=== PATIENT | male | born 1980 | race Caucasian/White ===

== ENCOUNTER 2023-08-07 23:39 | Emergency (ER) | payer MEDICARE, MEDICAID ==
[~2023-08-07] VITALS: Ht 182.9 cm; Wt 79.5 kg
[2023-08-07 23:44] VITALS: TEMP 98.3
[2023-08-07] MEDS ORDERED: clonazePAM 1 MG TAB PO ONE (23:45)
[2023-08-07] MEDS ORDERED: cloNIDine 0.1 MG TAB PO ONE (23:45)
[2023-08-08] MEDS ORDERED: KLONOPIN 1MG1 MG PO (00:13)
[2023-08-08] MEDS ORDERED: CATAPRES 0.1MG0.1 MG PO (00:13)
[2023-08-08 00:15] VITALS: BP 137/64; PULSE 60
== END 2023-08-10 17:51 | disposition home or self-care (01) ==
LOC: COL.ER 23:39
DX: F41.9 Anxiety disorder, unspecified (principal); I10 Essential (primary) hypertension; Z76.0 Encounter for issue of repeat prescription; F17.210 Nicotine dependence, cigarettes, uncomplicated; Z79.899 Other long term (current) drug therapy

== ENCOUNTER → 2024-01-11 | Outpatient (CLI) | payer MEDICARE, MEDICAID ==
[~2024-01-11] MED LIST: CATAPRES 0.1MG0.1 MG PO; KLONOPIN 1MG1 MG PO; NORCO 325 MG-51 TAB PO; XARELTO15 MG PO
== END ==
LOC: COL.RAD 08:20
DX: I82.4Z2 Acute embolism and thrombosis of unspecified deep veins of left distal lower extremity (principal); I82.432 Acute embolism and thrombosis of left popliteal vein

== ENCOUNTER 2024-01-29 23:27 | Emergency (ER) | payer MEDICARE ==
[~2024-01-29] VITALS: Ht 182.9 cm; Wt 75.0 kg
[2024-01-29 23:36] VITALS: TEMP 98.4
[2024-01-30 00:26] LABS: BASO # 0.1 K/mm3 (0.0-0.2); BASO % 2.1 % (0.0-2.0); EOS # 0.3 K/mm3 (0.0-0.7); EOS % 4.3 % (0.0-4.0); GRAN # 2.5 K/mm3 (1.4-6.5); GRAN % 39.5 % (42.2-75.2); HEMATOCRIT 48.9 % (42.0-52.0); HEMOGLOBIN 16.9 g/dl (13.5-18.0); LYMPH # 2.8 K/mm3 (1.2-3.4); LYMPH % 44.5 % (20.0-51.0); MEAN CELL VOLUME 89 fl (80.0-100.0); MEAN CORPUSCULAR HEMOGLOBIN 31 pg (27-31); MEAN CORPUSCULAR HGB CONC 35 g/dl (33.0-37.0); MONO # 0.6 K/mm3 (0.1-0.6); MONO % 9.1 % (1.7-9.3); PLATELET COUNT 274 K/mm3 (130-400); REDCELL DISTRIBUTION WIDTH-CV 11.8 % (11.5-14.5)
[2024-01-30 00:44] LABS: INR 0.9 (0.8-3.0); PROTHROMBIN TIME 10.2 SECONDS (9.7-12.8)
[2024-01-30 00:47] LABS: ALBUMIN 3.9 g/dL (3.5-5.0); BILIRUBIN,TOTAL 0.4 mg/dL (0.2-1.2); CALCIUM 8.6 mg/dL (8.4-10.2); CREATININE, serum 1.2 mg/dL (0.72-1.25); PARTIAL THROMBOPLASTIN TIME 28.5 SECONDS (26.0-37.0); POTASSIUM 3.9 mEq/L (3.5-4.5); TOTAL PROTEIN 7.3 g/dl (6.2-8.1)
[2024-01-30] MEDS ORDERED: Rivaroxaban 15 MG TAB PO ONE (01:15)
[2024-01-30] MEDS ORDERED: Home HYDROcodone/Acetaminophen 7.5/325 MG #4 TABS/PACK PO ONE (01:15)
[2024-01-30 01:23] VITALS: BP 126/87; PULSE 81
== END 2024-01-30 01:26 | disposition home or self-care (01) ==
LOC: COL.ER 23:27
PROVIDERS: Emergency Medicine
DX: I82.432 Acute embolism and thrombosis of left popliteal vein (principal)

== ENCOUNTER 2024-03-29 02:09 | Emergency (ER) | payer MEDICARE ==
[~2024-03-29] VITALS: Ht 182.9 cm; Wt 77.3 kg
[2024-03-29 02:57] VITALS: BP 121/78; PULSE 105; TEMP 97.4
== END 2024-03-29 02:56 | disposition home or self-care (01) ==
LOC: COL.ER 02:09
DX: R52 Pain, unspecified (principal); F17.200 Nicotine dependence, unspecified, uncomplicated

== ENCOUNTER 2024-04-28 20:05 | Emergency (ER) | payer MEDICARE ==
[~2024-04-28] VITALS: Ht 180.3 cm; Wt 81.8 kg
[2024-04-28 20:14] VITALS: BP 136/90; TEMP 98.4
[2024-04-28] MEDS ORDERED: POLYMYXIN B/TRIMETH OD (21:56)
[2024-04-28 22:05] VITALS: PULSE 80
== END 2024-04-28 22:06 | disposition home or self-care (01) ==
LOC: COL.ER 20:05
DX: H11.433 Conjunctival hyperemia, bilateral (principal); H53.9 Unspecified visual disturbance; F17.210 Nicotine dependence, cigarettes, uncomplicated